=== PATIENT | female | born 1940 | race Caucasian/White ===

== ENCOUNTER 2021-11-24 16:25 | Inpatient (IN) | payer OTHER ==
[2021-11-24] MEDS ORDERED: ACETAMINOPHEN 500 MG TABLET (FP) PO ONE (16:39)
[2021-11-24] MEDS ORDERED: ACETAMINOPHEN 500 MG TABLET (FP) ONE (16:49)
[2021-11-24 19:14] LABS: HEMATOCRIT 35.2 % (32.4-45.2); HEMOGLOBIN 11.7 G/dL (10.7-15.3); MCHC 33.2 g/dl (32.0-36.0); MEAN CELL VOLUME 90.3 fl (80-96); MEAN PLT VOLUME 9.2 fl (7.5-11.1); PLATELET COUNT 416.8 10^3/uL (134-434); RDW 25.8 % (11.6-15.6); WHITE BLOOD COUNT 8.1 10^3/uL (4.0-10.8)
[2021-11-24 19:28] LABS: ALBUMIN 3.8 g/dl (3.4-5.0); BILIRUBIN,TOTAL 1.1 mg/dl (0.2-1); CALCIUM 9.4 mg/dl (8.5-10); TOT PROT 7.2 g/dl (6.4-8.2)
[2021-11-24 21:30] LABS: ANISOCYTOSIS 2+; PLATELET ESTIMATE SLT INCREASE
[2021-11-25 04:31] VITALS: BMI 24.1
[2021-11-25] MEDS ORDERED: ALBUTEROL SO4 2.5/IPRATROPIUM 0.5 INH SOL 3 ML VIAL.NEB. NEB PRN (08:39)
[2021-11-25] MEDS ORDERED: ALBUTEROL SO4 HFA INHALER IH SCH (08:45)
[2021-11-25] MEDS ORDERED: LEVOTHYROXINE NA 75 MCG TABLET (FP) PO SCH (09:00)
[2021-11-25] MEDS ORDERED: ALBUTEROL SO4 HFA INHALER IH PRN ×2 (09:44→16:02)
[2021-11-25] MEDS ORDERED: DOCUSATE SODIUM 100 MG CAPSULE (FP) PO ONE (09:50)
[2021-11-25] MEDS ORDERED: CARVEDILOL 6.25 MG TABLET (FP) PO SCH (10:00)
[2021-11-25] MEDS ORDERED: FUROSEMIDE 40 MG TABLET (FP) PO SCH (10:00)
[2021-11-25] MEDS ORDERED: LOSARTAN POTASSIUM 50 MG TABLET PO SCH (10:00)
[2021-11-25] MEDS ORDERED: ENOXAPARIN NA (PORCINE) 40 MG/0.4 ML DISP.SYRIN SQ SCH (10:00)
[2021-11-25] MEDS ORDERED: DOCUSATE SODIUM 100 MG CAPSULE (FP) PO SCH ×2 (10:00)
[2021-11-25] MEDS ORDERED: MEMANTINE HCL 10 MG TABLET (FP) PO SCH (10:00)
[2021-11-25] MEDS ORDERED: PANTOPRAZOLE 40 MG TABLET PO SCH (10:00)
[2021-11-25] MEDS ORDERED: REMDESIVIR 200 MG in SODIUM CHLORIDE 250 ML IVPB ONE (10:00)
[2021-11-25] MEDS ORDERED: DEXAMETHASONE SOD PHOSPHATE 10 MG/1 ML VIAL IVPUSH SCH (10:00)
[2021-11-25] MEDS ORDERED: IRON POLYSACCHARIDES 150 MG CAPSULE PO SCH (11:00)
[2021-11-25] MEDS ORDERED: ASPIRIN 81 MG CHEWABLE TABLETS PO ONE (11:50)
[2021-11-25 15:42] LABS: N-TERMINAL BNP 4251.2 pg/ml (5-450)
[2021-11-25] MEDS: INSULIN SLIDING SCALE (NOVOLOG) 1 VIAL SQ SCH (16:54)
[2021-11-25] MEDS: DONEPEZIL HCL 10 MG TABLET (FP) PO SCH (21:30)
[2021-11-25] MEDS: CARVEDILOL 6.25 MG TABLET (FP) PO SCH (21:30)
[2021-11-25] MEDS: ATORVASTATIN CA 40 MG TABLET (FP) PO SCH (21:30)
[2021-11-25] MEDS: MEMANTINE HCL 10 MG TABLET (FP) PO SCH (21:30)
[2021-11-25] MEDS ORDERED: ATORVASTATIN CA 40 MG TABLET (FP) PO SCH (22:00)
[2021-11-25] MEDS ORDERED: DONEPEZIL HCL 10 MG TABLET (FP) PO SCH (22:00)
[2021-11-26] MEDS: LEVOTHYROXINE NA 75 MCG TABLET (FP) PO SCH (06:23)
[2021-11-26] MEDS: INSULIN SLIDING SCALE (NOVOLOG) 1 VIAL SQ SCH ×3 (06:31→17:24)
[2021-11-26 08:35] LABS: BASO % 0.1 % (0-2.0); HEMATOCRIT 31.1 % (32.4-45.2); HEMOGLOBIN 10.2 GM/dL (10.7-15.3); LYMPH % 10.4 % (8-40); MCH 28.8 pg (25.7-33.7); MCHC 32.8 g/dl (32.0-36.0); MEAN CELL VOLUME 87.8 fl (80-96); MEAN PLT VOLUME 8.9 fl (7.5-11.1); MONO % 4.4 % (3.8-10.2); NEUT % 85.1 % (42.8-82.8); PLATELET COUNT 250 10^3/uL (134-434); RBC 3.54 M/mm3 (3.60-5.2); RDW 25.9 % (11.6-15.6); WHITE BLOOD COUNT 4.6 K/mm3 (4.0-10.0)
[2021-11-26 09:37] LABS: CALCIUM 8.3 mg/dL (8.5-10.1)
[2021-11-26 09:38] LABS: ANISOCYTOSIS 3+; BLOOD UREA NITROGEN 26.4 mg/dL (7-18); MACROCYTOSIS 0; MAGNESIUM 2.4 mg/dL (1.8-2.4); OVALOCYTE 2+
[2021-11-26 09:40] LABS: CREATININE 0.9 mg/dL (0.55-1.3)
[2021-11-26 09:41] LABS: BILIRUBIN,TOTAL 0.5 mg/dL (0.2-1); PHOSPHOROUS 2.5 mg/dL (2.5-4.9); TOT PROT 6.4 g/dl (6.4-8.2)
[2021-11-26] MEDS: CARVEDILOL 6.25 MG TABLET (FP) PO SCH ×2 (09:50→21:12)
[2021-11-26] MEDS: PANTOPRAZOLE 40 MG TABLET PO SCH (09:50)
[2021-11-26] MEDS: ENOXAPARIN NA (PORCINE) 40 MG/0.4 ML DISP.SYRIN SQ SCH (09:50)
[2021-11-26] MEDS: MEMANTINE HCL 10 MG TABLET (FP) PO SCH ×2 (09:50→21:12)
[2021-11-26] MEDS: DOCUSATE SODIUM 100 MG CAPSULE (FP) PO SCH (09:50)
[2021-11-26] MEDS: IRON POLYSACCHARIDES 150 MG CAPSULE PO SCH (09:51)
[2021-11-26] MEDS: DEXAMETHASONE SOD PHOSPHATE 10 MG/1 ML VIAL IVPUSH SCH (09:51)
[2021-11-26] MEDS: LOSARTAN POTASSIUM 50 MG TABLET PO SCH (09:51)
[2021-11-26] MEDS ORDERED: POTASSIUM CHLORIDE TABS 20 MEQ TABLET.ER (FP) PO ONE (09:59)
[2021-11-26] MEDS ORDERED: FUROSEMIDE 40 MG TABLET (FP) PO SCH (10:00)
[2021-11-26] MEDS ORDERED: REMDESIVIR 100 MG in SODIUM CHLORIDE 270 ML IVPB SCH (10:00)
[2021-11-26] MEDS: REMDESIVIR 100 MG in SODIUM CHLORIDE 270 ML IVPB SCH (10:28)
[2021-11-26] MEDS ORDERED: FUROSEMIDE 40 MG/4 ML INJECTABLE VIAL IVPUSH ONE (18:17)
[2021-11-26] MEDS: ATORVASTATIN CA 40 MG TABLET (FP) PO SCH (21:12)
[2021-11-26] MEDS: DONEPEZIL HCL 10 MG TABLET (FP) PO SCH (21:12)
[2021-11-27] MEDS: INSULIN SLIDING SCALE (NOVOLOG) 1 VIAL SQ SCH ×3 (06:06→17:13)
[2021-11-27] MEDS: LEVOTHYROXINE NA 75 MCG TABLET (FP) PO SCH (06:06)
[2021-11-27 06:33] LABS: BASO % 0.1 % (0-2.0); HEMOGLOBIN 10.1 GM/dL (10.7-15.3); LYMPH % 6.5 % (8-40); MCH 28.1 pg (25.7-33.7); MCHC 31.7 g/dl (32.0-36.0); MEAN CELL VOLUME 88.6 fl (80-96); MEAN PLT VOLUME 9.1 fl (7.5-11.1); MONO % 4.3 % (3.8-10.2); NEUT % 89.1 % (42.8-82.8); PLATELET COUNT 294 10^3/uL (134-434); RBC 3.61 M/mm3 (3.60-5.2); RDW 26.2 % (11.6-15.6); WHITE BLOOD COUNT 7.9 K/mm3 (4.0-10.0)
[2021-11-27 06:56] LABS: ALBUMIN 3.1 g/dl (3.4-5.0); BLOOD UREA NITROGEN 32.7 mg/dL (7-18)
[2021-11-27 06:57] LABS: CALCIUM 8.4 mg/dL (8.5-10.1)
[2021-11-27 06:58] LABS: MAGNESIUM 2.2 mg/dL (1.8-2.4)
[2021-11-27 06:59] LABS: CREATININE 1.1 mg/dL (0.55-1.3)
[2021-11-27 07:00] LABS: BILIRUBIN,TOTAL 0.4 mg/dL (0.2-1); TOT PROT 6.4 g/dl (6.4-8.2)
[2021-11-27] MEDS: LOSARTAN POTASSIUM 50 MG TABLET PO SCH (09:00)
[2021-11-27] MEDS: DOCUSATE SODIUM 100 MG CAPSULE (FP) PO SCH (09:00)
[2021-11-27] MEDS: CARVEDILOL 6.25 MG TABLET (FP) PO SCH ×2 (09:01→21:37)
[2021-11-27] MEDS: MEMANTINE HCL 10 MG TABLET (FP) PO SCH ×2 (09:01→21:40)
[2021-11-27] MEDS: IRON POLYSACCHARIDES 150 MG CAPSULE PO SCH (09:01)
[2021-11-27] MEDS: ENOXAPARIN NA (PORCINE) 40 MG/0.4 ML DISP.SYRIN SQ SCH (09:02)
[2021-11-27] MEDS: DEXAMETHASONE SOD PHOSPHATE 10 MG/1 ML VIAL IVPUSH SCH (09:02)
[2021-11-27] MEDS: FUROSEMIDE 40 MG/4 ML INJECTABLE VIAL IVPB SCH (09:18)
[2021-11-27] MEDS: PANTOPRAZOLE 40 MG TABLET PO SCH (09:18)
[2021-11-27] MEDS: REMDESIVIR 100 MG in SODIUM CHLORIDE 270 ML IVPB SCH (09:42)
[2021-11-27] MEDS: ATORVASTATIN CA 40 MG TABLET (FP) PO SCH (21:37)
[2021-11-27] MEDS: DONEPEZIL HCL 10 MG TABLET (FP) PO SCH (21:37)
[2021-11-28] MEDS: LEVOTHYROXINE NA 75 MCG TABLET (FP) PO SCH (06:01)
[2021-11-28] MEDS: INSULIN SLIDING SCALE (NOVOLOG) 1 VIAL SQ SCH ×3 (06:01→16:46)
[2021-11-28 09:20] LABS: HEMATOCRIT 34.3 % (32.4-45.2); HEMOGLOBIN 11.1 GM/dL (10.7-15.3); LYMPH % 7.1 % (8-40); MCH 28.7 pg (25.7-33.7); MCHC 32.4 g/dl (32.0-36.0); MEAN CELL VOLUME 88.5 fl (80-96); MEAN PLT VOLUME 9.6 fl (7.5-11.1); MONO % 3.6 % (3.8-10.2); NEUT % 89.3 % (42.8-82.8); PLATELET COUNT 304 10^3/uL (134-434); RBC 3.87 M/mm3 (3.60-5.2); RDW 26.1 % (11.6-15.6); WHITE BLOOD COUNT 8.4 K/mm3 (4.0-10.0)
[2021-11-28] MEDS: CARVEDILOL 6.25 MG TABLET (FP) PO SCH ×2 (09:38→21:55)
[2021-11-28] MEDS: LOSARTAN POTASSIUM 50 MG TABLET PO SCH (09:39)
[2021-11-28] MEDS: PANTOPRAZOLE 40 MG TABLET PO SCH (09:39)
[2021-11-28] MEDS: DEXAMETHASONE SOD PHOSPHATE 10 MG/1 ML VIAL IVPUSH SCH (09:39)
[2021-11-28] MEDS: DOCUSATE SODIUM 100 MG CAPSULE (FP) PO SCH (09:39)
[2021-11-28] MEDS: FUROSEMIDE 40 MG/4 ML INJECTABLE VIAL IVPB SCH (09:41)
[2021-11-28] MEDS: ENOXAPARIN NA (PORCINE) 40 MG/0.4 ML DISP.SYRIN SQ SCH (09:43)
[2021-11-28] MEDS: MEMANTINE HCL 10 MG TABLET (FP) PO SCH ×2 (09:43→21:55)
[2021-11-28] MEDS: IRON POLYSACCHARIDES 150 MG CAPSULE PO SCH (09:44)
[2021-11-28] MEDS: REMDESIVIR 100 MG in SODIUM CHLORIDE 270 ML IVPB SCH (09:44)
[2021-11-28 10:19] LABS: ALBUMIN 3.3 g/dl (3.4-5.0); BLOOD UREA NITROGEN 34.3 mg/dL (7-18); CALCIUM 8.7 mg/dL (8.5-10.1)
[2021-11-28 10:20] LABS: MAGNESIUM 2.7 mg/dL (1.8-2.4)
[2021-11-28 10:24] LABS: BILIRUBIN,TOTAL 0.5 mg/dL (0.2-1); TOT PROT 6.8 g/dl (6.4-8.2)
[2021-11-28] MEDS: DONEPEZIL HCL 10 MG TABLET (FP) PO SCH (21:55)
[2021-11-28] MEDS: ATORVASTATIN CA 40 MG TABLET (FP) PO SCH (21:55)
[2021-11-29] MEDS: LEVOTHYROXINE NA 75 MCG TABLET (FP) PO SCH (06:00)
[2021-11-29] MEDS: INSULIN SLIDING SCALE (NOVOLOG) 1 VIAL SQ SCH ×3 (06:04→17:25)
[2021-11-29 09:42] LABS: HEMATOCRIT 35.9 % (32.4-45.2); HEMOGLOBIN 11.6 GM/dL (10.7-15.3); LYMPH % 9.7 % (8-40); MCH 28.6 pg (25.7-33.7); MCHC 32.5 g/dl (32.0-36.0); MEAN PLT VOLUME 9.5 fl (7.5-11.1); NEUT % 86.3 % (42.8-82.8); PLATELET COUNT 278 10^3/uL (134-434); RBC 4.08 M/mm3 (3.60-5.2); RDW 26.4 % (11.6-15.6); WHITE BLOOD COUNT 6.9 K/mm3 (4.0-10.0)
[2021-11-29 10:07] LABS: ALBUMIN 3.2 g/dl (3.4-5.0); BLOOD UREA NITROGEN 31.1 mg/dL (7-18)
[2021-11-29 10:10] LABS: CALCIUM 8.7 mg/dL (8.5-10.1); CREATININE 0.9 mg/dL (0.55-1.3)
[2021-11-29 10:11] LABS: TOT PROT 6.6 g/dl (6.4-8.2)
[2021-11-29 10:12] LABS: BILIRUBIN,TOTAL 0.5 mg/dL (0.2-1)
[2021-11-29 10:15] LABS: MAGNESIUM 2.6 mg/dL (1.8-2.4)
[2021-11-29] MEDS: ENOXAPARIN NA (PORCINE) 40 MG/0.4 ML DISP.SYRIN SQ SCH (10:16)
[2021-11-29] MEDS: REMDESIVIR 100 MG in SODIUM CHLORIDE 270 ML IVPB SCH (10:16)
[2021-11-29] MEDS: FUROSEMIDE 40 MG/4 ML INJECTABLE VIAL IVPB SCH (10:16)
[2021-11-29] MEDS: DOCUSATE SODIUM 100 MG CAPSULE (FP) PO SCH (10:16)
[2021-11-29] MEDS: IRON POLYSACCHARIDES 150 MG CAPSULE PO SCH (10:16)
[2021-11-29] MEDS: MEMANTINE HCL 10 MG TABLET (FP) PO SCH ×2 (10:16→21:09)
[2021-11-29] MEDS: CARVEDILOL 6.25 MG TABLET (FP) PO SCH ×2 (10:16→21:09)
[2021-11-29] MEDS: DEXAMETHASONE SOD PHOSPHATE 10 MG/1 ML VIAL IVPUSH SCH (10:16)
[2021-11-29] MEDS: PANTOPRAZOLE 40 MG TABLET PO SCH (10:16)
[2021-11-29] MEDS: LOSARTAN POTASSIUM 50 MG TABLET PO SCH (10:16)
[2021-11-29 11:18] LABS: ANISOCYTOSIS 2+; MACROCYTOSIS 0; OVALOCYTE 2+
[2021-11-29] MEDS: ATORVASTATIN CA 40 MG TABLET (FP) PO SCH (21:09)
[2021-11-29] MEDS: DONEPEZIL HCL 10 MG TABLET (FP) PO SCH (21:09)
[2021-11-30] MEDS: LEVOTHYROXINE NA 75 MCG TABLET (FP) PO SCH (06:07)
[2021-11-30] MEDS: INSULIN SLIDING SCALE (NOVOLOG) 1 VIAL SQ SCH ×3 (07:17→16:57)
[2021-11-30] MEDS: ENOXAPARIN NA (PORCINE) 40 MG/0.4 ML DISP.SYRIN SQ SCH (09:15)
[2021-11-30] MEDS: DEXAMETHASONE SOD PHOSPHATE 10 MG/1 ML VIAL IVPUSH SCH (09:15)
[2021-11-30] MEDS: MEMANTINE HCL 10 MG TABLET (FP) PO SCH ×2 (09:15→21:50)
[2021-11-30] MEDS: PANTOPRAZOLE 40 MG TABLET PO SCH (09:16)
[2021-11-30] MEDS: LOSARTAN POTASSIUM 50 MG TABLET PO SCH (09:16)
[2021-11-30] MEDS: DOCUSATE SODIUM 100 MG CAPSULE (FP) PO SCH (09:16)
[2021-11-30] MEDS: FUROSEMIDE 40 MG/4 ML INJECTABLE VIAL IVPB SCH (09:16)
[2021-11-30] MEDS: IRON POLYSACCHARIDES 150 MG CAPSULE PO SCH (09:16)
[2021-11-30] MEDS: CARVEDILOL 6.25 MG TABLET (FP) PO SCH ×2 (09:16→21:50)
[2021-11-30 09:37] LABS: EOS % 0.4 % (0-4.5); HEMATOCRIT 35.9 % (32.4-45.2); HEMOGLOBIN 11.5 GM/dL (10.7-15.3); LYMPH % 14.4 % (8-40); MCH 28.5 pg (25.7-33.7); MEAN CELL VOLUME 89.2 fl (80-96); MEAN PLT VOLUME 9.2 fl (7.5-11.1); MONO % 5.5 % (3.8-10.2); NEUT % 79.7 % (42.8-82.8); PLATELET COUNT 279 10^3/uL (134-434); RBC 4.02 M/mm3 (3.60-5.2); RDW 25.5 % (11.6-15.6); WHITE BLOOD COUNT 6.5 K/mm3 (4.0-10.0)
[2021-11-30 09:55] LABS: CALCIUM 8.3 mg/dL (8.5-10.1)
[2021-11-30 09:56] LABS: BLOOD UREA NITROGEN 31.5 mg/dL (7-18); MAGNESIUM 2.4 mg/dL (1.8-2.4)
[2021-11-30 10:01] LABS: TOT PROT 6.1 g/dl (6.4-8.2)
[2021-11-30 10:02] LABS: BILIRUBIN,TOTAL 0.6 mg/dL (0.2-1)
[2021-11-30] MEDS ORDERED: PNEUMOC 20-VAL CONJ-DIP CRM/PF 0.5 ML SYRINGE IM ONE (14:00)
[2021-11-30] MEDS: ATORVASTATIN CA 40 MG TABLET (FP) PO SCH (21:50)
[2021-11-30] MEDS: DONEPEZIL HCL 10 MG TABLET (FP) PO SCH (21:50)
[2021-12-01] MEDS: LEVOTHYROXINE NA 75 MCG TABLET (FP) PO SCH (06:05)
[2021-12-01] MEDS: INSULIN SLIDING SCALE (NOVOLOG) 1 VIAL SQ SCH ×3 (06:10→15:59)
[2021-12-01 08:19] LABS: BASO % 0.2 % (0-2.0); HEMATOCRIT 34.5 % (32.4-45.2); LYMPH % 7.2 % (8-40); MCH 28.6 pg (25.7-33.7); MEAN CELL VOLUME 89.2 fl (80-96); MEAN PLT VOLUME 9.6 fl (7.5-11.1); MONO % 6.4 % (3.8-10.2); NEUT % 86.2 % (42.8-82.8); PLATELET COUNT 238 10^3/uL (134-434); RBC 3.86 M/mm3 (3.60-5.2); RDW 25.4 % (11.6-15.6); WHITE BLOOD COUNT 7.1 K/mm3 (4.0-10.0)
[2021-12-01 08:37] LABS: CALCIUM 8.3 mg/dL (8.5-10.1)
[2021-12-01 08:38] LABS: ALBUMIN 2.7 g/dl (3.4-5.0); MAGNESIUM 2.6 mg/dL (1.8-2.4)
[2021-12-01 08:41] LABS: CREATININE 0.9 mg/dL (0.55-1.3)
[2021-12-01 08:42] LABS: TOT PROT 5.8 g/dl (6.4-8.2)
[2021-12-01 08:43] LABS: BILIRUBIN,TOTAL 0.5 mg/dL (0.2-1)
[2021-12-01] MEDS: FUROSEMIDE 40 MG TABLET (FP) PO SCH (09:08)
[2021-12-01] MEDS: PANTOPRAZOLE 40 MG TABLET PO SCH (09:08)
[2021-12-01] MEDS: DOCUSATE SODIUM 100 MG CAPSULE (FP) PO SCH (09:08)
[2021-12-01] MEDS: CARVEDILOL 6.25 MG TABLET (FP) PO SCH ×2 (09:08→21:10)
[2021-12-01] MEDS: ENOXAPARIN NA (PORCINE) 40 MG/0.4 ML DISP.SYRIN SQ SCH (09:08)
[2021-12-01] MEDS: DEXAMETHASONE 4 MG TABLET (FP) PO SCH (09:08)
[2021-12-01] MEDS: LOSARTAN POTASSIUM 50 MG TABLET PO SCH (09:08)
[2021-12-01] MEDS: MEMANTINE HCL 10 MG TABLET (FP) PO SCH ×2 (09:09→21:10)
[2021-12-01] MEDS: IRON POLYSACCHARIDES 150 MG CAPSULE PO SCH (09:09)
[2021-12-01] MEDS ORDERED: LOSARTAN POTASSIUM 50 MG TABLET PO ONE (15:07)
[2021-12-01] MEDS: DONEPEZIL HCL 10 MG TABLET (FP) PO SCH (21:10)
[2021-12-01] MEDS: ATORVASTATIN CA 40 MG TABLET (FP) PO SCH (21:11)
[2021-12-02] MEDS: INSULIN SLIDING SCALE (NOVOLOG) 1 VIAL SQ SCH ×3 (06:04→16:12)
[2021-12-02] MEDS: LEVOTHYROXINE NA 75 MCG TABLET (FP) PO SCH (06:04)
[2021-12-02 09:17] LABS: BASO % 0.1 % (0-2.0); HEMATOCRIT 35.4 % (32.4-45.2); HEMOGLOBIN 11.7 GM/dL (10.7-15.3); LYMPH % 9.2 % (8-40); MCH 29.2 pg (25.7-33.7); MCHC 33.1 g/dl (32.0-36.0); MEAN CELL VOLUME 88.2 fl (80-96); MEAN PLT VOLUME 9.5 fl (7.5-11.1); MONO % 5.5 % (3.8-10.2); NEUT % 85.2 % (42.8-82.8); PLATELET COUNT 263 10^3/uL (134-434); RBC 4.01 M/mm3 (3.60-5.2); RDW 26.1 % (11.6-15.6); WHITE BLOOD COUNT 7.6 K/mm3 (4.0-10.0)
[2021-12-02] MEDS: DEXAMETHASONE 4 MG TABLET (FP) PO SCH (09:22)
[2021-12-02] MEDS: CARVEDILOL 6.25 MG TABLET (FP) PO SCH ×2 (09:22→21:10)
[2021-12-02] MEDS: DOCUSATE SODIUM 100 MG CAPSULE (FP) PO SCH (09:22)
[2021-12-02] MEDS: LOSARTAN POTASSIUM 50 MG TABLET PO SCH (09:22)
[2021-12-02] MEDS: PANTOPRAZOLE 40 MG TABLET PO SCH (09:23)
[2021-12-02] MEDS: ENOXAPARIN NA (PORCINE) 40 MG/0.4 ML DISP.SYRIN SQ SCH (09:23)
[2021-12-02] MEDS: IRON POLYSACCHARIDES 150 MG CAPSULE PO SCH (09:23)
[2021-12-02] MEDS: FUROSEMIDE 40 MG TABLET (FP) PO SCH (09:23)
[2021-12-02] MEDS: MEMANTINE HCL 10 MG TABLET (FP) PO SCH ×2 (09:23→21:10)
[2021-12-02 09:33] LABS: CALCIUM 8.3 mg/dL (8.5-10.1)
[2021-12-02 09:34] LABS: ALBUMIN 2.8 g/dl (3.4-5.0); BLOOD UREA NITROGEN 29.2 mg/dL (7-18); MAGNESIUM 2.4 mg/dL (1.8-2.4)
[2021-12-02 09:37] LABS: CREATININE 0.9 mg/dL (0.55-1.3)
[2021-12-02 09:38] LABS: BILIRUBIN,TOTAL 0.7 mg/dL (0.2-1)
[2021-12-02 09:39] LABS: TOT PROT 5.9 g/dl (6.4-8.2)
[2021-12-02] MEDS: ATORVASTATIN CA 40 MG TABLET (FP) PO SCH (21:10)
[2021-12-02] MEDS: DONEPEZIL HCL 10 MG TABLET (FP) PO SCH (21:10)
[2021-12-03 04:08] LABS: SARS-CoV-2 NAA Not Detected (Not Detected)
[2021-12-03] MEDS: LEVOTHYROXINE NA 75 MCG TABLET (FP) PO SCH (06:20)
[2021-12-03] MEDS: INSULIN SLIDING SCALE (NOVOLOG) 1 VIAL SQ SCH ×2 (06:21→12:01)
[2021-12-03] MEDS ORDERED: MAG HYDROX/AL HYDROX/SIMETH -MYLANTA- ORAL SUSPENSION PO PRN (06:23)
[2021-12-03 07:53] LABS: BASO % 0.1 % (0-2.0); HEMATOCRIT 35.2 % (32.4-45.2); HEMOGLOBIN 11.9 GM/dL (10.7-15.3); LYMPH % 8.6 % (8-40); MCH 29.4 pg (25.7-33.7); MCHC 33.7 g/dl (32.0-36.0); MEAN CELL VOLUME 87.2 fl (80-96); MEAN PLT VOLUME 9.3 fl (7.5-11.1); MONO % 5.8 % (3.8-10.2); NEUT % 85.5 % (42.8-82.8); PLATELET COUNT 222 10^3/uL (134-434); RBC 4.03 M/mm3 (3.60-5.2); RDW 25.5 % (11.6-15.6); WHITE BLOOD COUNT 6.9 K/mm3 (4.0-10.0)
[2021-12-03 07:57] LABS: CHLORIDE 104 mmol/L (98-107); SODIUM 139 mmol/L (136-145)
[2021-12-03 07:59] LABS: ANION GAP 8 MMOL/L (8-16); BLOOD UREA NITROGEN 31.6 mg/dL (7-18); CALCIUM 8.3 mg/dL (8.5-10.1); CO2 27 mmol/L (21-32)
[2021-12-03 08:01] LABS: ALBUMIN 2.9 g/dl (3.4-5.0); GLUCOSE,RANDOM 139 mg/dL (74-106); MAGNESIUM 2.5 mg/dL (1.8-2.4)
[2021-12-03 08:03] LABS: CREATININE 0.8 mg/dL (0.55-1.3); SGOT/AST 14 U/L (15-37); SGPT/ALT 31 U/L (13-61)
[2021-12-03 08:04] LABS: BILIRUBIN,TOTAL 0.6 mg/dL (0.2-1); TOT PROT 5.9 g/dl (6.4-8.2)
[2021-12-03 08:05] LABS: ALK PHOS 69 U/L (45-117)
[2021-12-03] MEDS: LOSARTAN POTASSIUM 50 MG TABLET PO SCH (10:00)
[2021-12-03] MEDS: FUROSEMIDE 40 MG TABLET (FP) PO SCH (10:01)
[2021-12-03] MEDS: DOCUSATE SODIUM 100 MG CAPSULE (FP) PO SCH (10:01)
[2021-12-03] MEDS: CARVEDILOL 6.25 MG TABLET (FP) PO SCH (10:01)
[2021-12-03] MEDS: DEXAMETHASONE 4 MG TABLET (FP) PO SCH (10:01)
[2021-12-03] MEDS: PANTOPRAZOLE 40 MG TABLET PO SCH (10:02)
[2021-12-03] MEDS: MEMANTINE HCL 10 MG TABLET (FP) PO SCH (10:02)
[2021-12-03] MEDS: ENOXAPARIN NA (PORCINE) 40 MG/0.4 ML DISP.SYRIN SQ SCH (10:02)
[2021-12-03] MEDS: IRON POLYSACCHARIDES 150 MG CAPSULE PO SCH (10:02)
[2021-12-03 12:50] LABS: ANISOCYTOSIS 2+; MACROCYTOSIS 1+; OVALOCYTE 2+
[2021-12-03 14:41] VITALS: BP 150/74; PULSE 77; TEMP 98.3
[2021-12-03] MEDS ORDERED: APIXABAN 5 MG TABLET PO SCH (22:00)
== END 2021-12-03 15:22 | DRG 177 ==
LOC: FER 16:25 → INTOOBSV 11-25 03:25 → UNDOADMOB 11-25 03:25 → J8W 11-25 03:25 → OBSVTOIN 11-25 09:50 → J4S 11-25 15:34
PROVIDERS: ADMIT Internal Medicine; ATTEND Nurse Practitioner Acute Care
PROC: XW033E5 Introduction of Remdesivir Anti-infective into Peripheral Vein, Percutaneous Approach, New Technology Group 5 (ICD-10-PCS; principal; 2021-11-24)
DX: U07.1 COVID-19 (principal); J12.82 Pneumonia due to coronavirus disease 2019; I24.8 Other forms of acute ischemic heart disease; I48.19 Other persistent atrial fibrillation; I50.30 Unspecified diastolic (congestive) heart failure; R09.02 Hypoxemia; F03.90 Unspecified dementia, unspecified severity, without behavioral disturbance, psychotic disturbance, mood disturbance, and anxiety; I25.119 Atherosclerotic heart disease of native coronary artery with unspecified angina pectoris
CPT/HCPCS: 36415; 71045-TC-FY; 73610-TC-RT-FY; 73630-TC-RT-FY; 80053; 80061; 82962; 83036; 83615; 83735; 83880; 84100; 84436; 84443; 84484; 85025; 85027; 85379; 86140; 90677; 93005; 93010; 93971-TC; 97116-GP; 97162-GP; 99285-25; C9399; C9803-CS; G0378; J1100; U0003; U0005